=== PATIENT | male | born 1950 | race Caucasian/White ===

== ENCOUNTER → 2019-07-05 | Outpatient (CLI) | payer MEDICARE, OTHER ==
[2019-07-05 11:30] LABS: ABSOLUTE BASOPHILS # (AUTO) 0.1 10^3/uL (0.0-0.2); ABSOLUTE EOSINOPHILS # (AUTO) 0.1 10^3/uL (0.0-0.6); ABSOLUTE LYMPHOCYTES (AUTO) 0.7 10^3/uL (0.5-4.7); ABSOLUTE MONOCYTES (AUTO) 0.4 10^3/uL (0.1-1.4); ABSOLUTE NEUT (AUTO) 5.8 10^3/uL (1.7-8.2); BASOPHILS % (AUTO) 0.8 % (0-2); EOSINOPHILS % (AUTO) 2.1 % (0-6); HEMATOCRIT 41.1 % (37.9-51.0); HEMOGLOBIN 13.9 g/dL (13.5-17.0); LYMPHOCYTES % (AUTO) 9.6 % (13-45); MEAN CORPUSCULAR HEMOGLOBIN 29.9 pg (27.0-33.4); MEAN CORPUSCULAR HGB CONC 33.8 g/dL (32.0-36.0); MEAN CORPUSCULAR VOLUME 88 fl (80-97); MONOCYTES % (AUTO) 5.5 % (3-13); PLATELET COUNT 168 10^3/uL (150-450); RED BLOOD COUNT 4.65 10^6/uL (4.35-5.55); RED CELL DISTRIBUTION WIDTH 13.9 % (11.5-14.0); TOTAL CELLS COUNTED % (AUTO) 100 %; WHITE BLOOD COUNT 7.1 10^3/uL (4.0-10.5)
[2019-07-05 12:22] LABS: ERYTHROCYTE SEDIMENTATION RATE 18 mm/hr (0-20)
== END ==
LOC: OD 10:36
PROVIDERS: ATTEND Ophthalmology
DX: H47.012 Ischemic optic neuropathy, left eye (principal); H35.62 Retinal hemorrhage, left eye
CPT/HCPCS: 36415; 85025; 85652; 86140

== ENCOUNTER → 2019-11-17 | Outpatient (CLI) | payer MEDICARE ==
--- NOTE | 2019-11-17 12:22 | RADIOLOGY REPORT (SQ) ---
EXAM DESCRIPTION: CT CHEST WITHOUT COMPLETED DATE/TIME: 11/17/2019 9:04 am REASON FOR STUDY: R94.2 ABNORMAL RESULTS OF PULMONARY FUNCTION STUDIES R94.2 ABNORMAL RESULTS OF PU LMONARY FUNCTION STUDIES. Restricted pattern present on pulmonary function testing. The knee and ex ertion and low oxygen levels. Hypertension, diabetes, right bundle branch block, allergic rhinitis, ischemic optic neuropathy, prostate cancer. Cardiology follows. 50 pack-year history of smoking paula t 30 years ago. Oxygen saturation in clinic was October 3% on room air at rest. Shortness of breath decreased primarily with activity. COMPARISON: None. TECHNIQUE: CT scan performed of the chest without intravenous contrast. Images reviewed with lung, soft tissue and bone windows. Reconstructed coronal and sagittal MPR images reviewed. All images st ored on PACS. All CT scanners at this facility use dose modulation, iterative reconstruction, and/or weight based d osing when appropriate to reduce radiation dose to as low as reasonably achievable (ALARA). [facility]: Dose Right [facility]: CareDose [facility]: Dose Right [facility]: Teradose 4D [facility]: [employer] RADIATION DOSE: CT Rad equipment meets quality standard of care and radiation dose reduction techniq ues were employed. CTDIvol: 19.5 mGy. DLP: 740 mGy-cm. mGy. LIMITATIONS: No technical limitations. FINDINGS: LUNGS AND PLEURA: The trachea has normal caliber and appearance. No bronchial wall thicke volodymyr or bronchiectasis. No subpleural reticulation or evidence of pulmonary fibrosis. There is line ar atelectasis at the left lung base. No focal consolidation or pleural effusion. No pleural thicke volodymyr or calcifications. No pneumothorax. HILAR AND MEDIASTINAL STRUCTURES: No identified masses or abnormal nodes. No obvious aneurysm. HEART AND VASCULAR STRUCTURES: Calcified coronary arteries. Heart has normal size. No pericardial e ffusion. UPPER ABDOMEN: No significant findings. Limited exam. THYROID AND OTHER SOFT TISSUES: No masses. No adenopathy. BONES: Spondylosis and degenerative disc disease in the thoracolumbar spine. No suspicious bone lesi ons. HARDWARE: None in the chest. OTHER: No other significant findings. IMPRESSION: 1. Coronary artery atherosclerosis. 2. No acute pulmonary disease. No evidence of underlying pulmonary fibrosis or emphysema. TECHNICAL DOCUMENTATION: JOB ID: [id number] Quality ID # [id number]: Final reports with documentation of one or more dose reduction techniques (e.g., Au tomated exposure control, adjustment of the mA and/or kV according to patient size, use of iterative reconstruction technique) 2010 [employer]- All Rights Reserved Reading location - IP/workstation name: [email or web address]
== END ==
LOC: RAD 09:43
PROVIDERS: ATTEND Registered Nurse
DX: R94.2 Abnormal results of pulmonary function studies (principal); I25.10 Atherosclerotic heart disease of native coronary artery without angina pectoris; M47.9 Spondylosis, unspecified; M51.35 Other intervertebral disc degeneration, thoracolumbar region
CPT/HCPCS: 71250